=== PATIENT | male | born 2000 | race African-American/Black ===

== ENCOUNTER 2021-09-03 19:23 | Inpatient (IN) | payer OTHER ==
[~2021-09-03] VITALS: Ht 177.8 cm; Wt 100.0 kg
[2021-09-03 20:20] LABS: BASOPHILS % (AUTO) 0.1 % (0.0-2.0); EOSINOPHILS % (AUTO) 0 % (1.0-6.0); HEMATOCRIT 42.5 % (41-53); HEMOGLOBIN 14.8 g/dL (13.5-17.5); LYMPHOCYTES # (AUTO) 0.8 K/uL (1.0-4.8); LYMPHOCYTES % (AUTO) 5.2 % (22.0-44.0); MEAN CORPUSCULAR HEMOGLOBIN 26.7 pg (26.0-34.0); MEAN CORPUSCULAR HGB CONC 34.8 G/dL (31.0-37.0); MEAN CORPUSCULAR VOLUME 77 fL (80-100); MONOCYTES # (AUTO) 1.8 K/uL (0.1-1.0); NEUTROPHILS # (AUTO) 12.4 K/uL (1.8-7.7); NEUTROPHILS % (AUTO) 82.7 % (40.0-70.0); PLATELET COUNT (AUTO) 175 K/uL (150-450); RED BLOOD CELL COUNT(AUTO) 5.55 MIL/uL (4.50-5.90)
[2021-09-03 20:30] LABS: ANION GAP 9 mmol/L (8-16); CARBON DIOXIDE 29 mmol/L (22-29); CHLORIDE 94 mmol/L (98-107); CREATININE 0.92 mg/dL (0.60-1.30); GLUCOSE,RANDOM 115 mg/dL (70-110); POTASSIUM 3.4 mmol/L (3.5-5.1); SODIUM SERUM 132 mmol/L (136-145); UREA NITROGEN, BLOOD 13 mg/dL (7-18)
[2021-09-03 20:31] LABS: CALCIUM, TOTAL 9.4 mg/dL (8.8-10.5); GLOMERULAR FILTR. RATE CALC > 60 mL/min (>60)
[2021-09-03 20:36] LABS: ALANINE AMINOTRANSFERASE 34 U/L (12-78); ALBUMIN 3.7 g/dL (3.4-5.0); ALKALINE PHOSPHATASE 153 U/L (46-116); ASPARTATE AMINOTRANSFERASE 40 U/L (15-37); BILIRUBIN,TOTAL 1.7 mg/dL (0.1-1.0); LIPASE 31 U/L (73-393); TOTAL PROTEIN, SERUM 8.4 g/dL (6.4-8.2)
[2021-09-03 21:38] LABS: APPEARANCE,URINE CLEAR (CLEAR); GLUCOSE, URINE (UA) NEGATIVE (NEGATIVE); KETONES,URINE 40 mg/dL (NEGATIVE); LEUKOCYTE ESTERASE ,URINE NEGATIVE (NEGATIVE); NITRATE,URINE NEGATIVE (NEGATIVE); OCCULT BLOOD,URINE NEGATIVE (NEGATIVE); PH,URINE 5.5 (5.0-8.0); PROTEIN,URINE POS 1+ (NEGATIVE)
[2021-09-03 21:42] LABS: BILIRUBIN,URINE PRELIM. POSITIVE (NEGATIVE)
[2021-09-03 21:44] LABS: BACTERIA,URINE Rare /HPF (None Seen); RBC,URINE 0-2 /HPF (0-2); WBC,URINE 0-2 /HPF (0-5)
[2021-09-03] MEDS ORDERED: BARIUM SULFATE 0.1% SUSPENSION 450 ML BOTTLE PO ONE (22:45)
[2021-09-03] MEDS ORDERED: ONDANSETRON HCL 4 MG TABLET PO ONE (22:45)
[2021-09-03] MEDS ORDERED: PIPERACILLIN/TAZO 3.375 GM/D5W 50 ML IV ONE (23:45)
[2021-09-04] MEDS ORDERED: SODIUM CHLORIDE 0.9% 1,000 ML IV ONE ×2
[2021-09-04] MEDS ORDERED: HYDROmorphone 2 MG/ML VIAL IVP PRN ×2 (00:30→12:15)
[2021-09-04] MEDS ORDERED: ONDANSETRON HCL 4 MG/2 ML VIAL IVP ONE (00:30)
[2021-09-04] MEDS ORDERED: HYDROmorphone 2 MG/ML VIAL IVP ONE (00:30)
[2021-09-04 01:36] LABS: COVID AG,FIA SOURCE NASOPHARYNGEAL
[2021-09-04] MEDS ORDERED: ONDANSETRON HCL 4 MG/2 ML VIAL IVP PRN (07:30)
[2021-09-04] MEDS ORDERED: AMPICILLIN SODIUM/SULBACTAM NA 1.5 GM in SODIUM CHLORIDE 0.9% 50 ML IV SCH (07:30)
[2021-09-04] MEDS ORDERED: MORPHINE SULFATE 2 MG/ML SYRINGE IVP PRN (07:30)
[2021-09-04] MEDS: RINGERS SOLUTION,LACTATED 1,000 ML IV SCH ×2 (08:08→22:35)
[2021-09-04] MEDS ORDERED: BUPIVACAINE/EPI/PF 0.5% 30 ML VIAL ONE (10:55)
[2021-09-04] MEDS ORDERED: BUPIVACAINE 0.25%/EPI 1:200,000/PF 10 ML VIAL ONE (10:57)
[2021-09-04] MEDS ORDERED: SODIUM CL IRRIG SOLN BAG 0 ML IRRIG ONE (10:58)
[2021-09-04] MEDS ORDERED: MEPERIDINE-PF 25 MG/ML VIAL IVP PRN (12:15)
[2021-09-04] MEDS ORDERED: FentaNYL CITRATE PF 100 MCG/2 ML VIAL IVP PRN (12:15)
[2021-09-04] MEDS ORDERED: PIPERACILLIN/TAZO 3.375 GM/D5W 50 ML IV ONE (12:45)
[2021-09-04] MEDS ORDERED: OxyCODONE HCL 5 MG IR TABLET PO PRN (13:30)
[2021-09-04 14:30] VITALS: BP 118/58
[2021-09-04] MEDS ORDERED: INFLUENZA VIRUS VACCINE QVS 2021-22 (6MO+)/PF 60 MCG/0.5 ML SYRINGE IM. ONE (15:30)
[2021-09-04] MEDS: ACETAMINOPHEN 500 MG TABLET PO SCH ×2 (16:41→20:23)
[2021-09-04] MEDS: HEPARIN SODIUM,PORCINE 5,000 UNITS/ML VIAL SQ SCH ×2 (16:45→23:27)
[2021-09-04] MEDS: IBUPROFEN 600 MG TABLET PO SCH ×2 (18:19→23:27)
[2021-09-04 19:42] VITALS: BP 121/62
[2021-09-04] MEDS: OXYGEN THERAPY IH SCH (20:00)
[2021-09-05 04:23] VITALS: BP 118/65
[2021-09-05] MEDS: RINGERS SOLUTION,LACTATED 1,000 ML IV SCH ×2 (05:57→14:04)
[2021-09-05] MEDS: IBUPROFEN 600 MG TABLET PO SCH ×2 (05:57→12:22)
[2021-09-05] MEDS ORDERED: LIDOCAINE/PF 2% 5 ML VIAL IM ONE (06:18)
[2021-09-05] MEDS ORDERED: MIDAZOLAM HCL 2 MG/2 ML VIAL IVP ONE (06:18)
[2021-09-05] MEDS ORDERED: SUCCINYLCHOLINE CHLORIDE 20 MG/ML 10 ML VIAL IVP ONE (06:18)
[2021-09-05] MEDS ORDERED: PROPOFOL 1% 20 ML VIAL IVP ONE (06:18)
[2021-09-05] MEDS ORDERED: HYDROmorphone 2 MG/ML VIAL IVP ONE (06:18)
[2021-09-05] MEDS ORDERED: ONDANSETRON HCL 4 MG/2 ML VIAL IVP ONE (06:18)
[2021-09-05] MEDS ORDERED: FentaNYL CITRATE PF 100 MCG/2 ML VIAL IVP ONE (06:18)
[2021-09-05 06:19] LABS: BASOPHILS % (AUTO) 0.3 % (0.0-2.0); EOSINOPHILS % (AUTO) 3.2 % (1.0-6.0); HEMATOCRIT 37.4 % (41-53); LYMPHOCYTES # (AUTO) 1.1 K/uL (1.0-4.8); LYMPHOCYTES % (AUTO) 14.8 % (22.0-44.0); MEAN CORPUSCULAR HEMOGLOBIN 27.1 pg (26.0-34.0); MEAN CORPUSCULAR HGB CONC 34.6 G/dL (31.0-37.0); MEAN CORPUSCULAR VOLUME 78 fL (80-100); MONOCYTES # (AUTO) 1.1 K/uL (0.1-1.0); MONOCYTES % (AUTO) 15.4 % (2.0-9.0); NEUTROPHILS # (AUTO) 4.9 K/uL (1.8-7.7); NEUTROPHILS % (AUTO) 66.3 % (40.0-70.0); PLATELET COUNT (AUTO) 172 K/uL (150-450); RED BLOOD CELL COUNT(AUTO) 4.79 MIL/uL (4.50-5.90); RED CELL DISTRIBUTION WIDTH 13.3 % (11.5-14.5)
[2021-09-05 06:35] LABS: ANION GAP 0 mmol/L (8-16); CALCIUM, TOTAL 8.7 mg/dL (8.8-10.5); CARBON DIOXIDE 34 mmol/L (22-29); CHLORIDE 101 mmol/L (98-107); CREATININE 0.71 mg/dL (0.60-1.30); GLOMERULAR FILTR. RATE CALC > 60 mL/min (>60); GLUCOSE,RANDOM 96 mg/dL (70-110); POTASSIUM 3.6 mmol/L (3.5-5.1); SODIUM SERUM 135 mmol/L (136-145); UREA NITROGEN, BLOOD 9 mg/dL (7-18)
[2021-09-05] MEDS: HEPARIN SODIUM,PORCINE 5,000 UNITS/ML VIAL SQ SCH ×2 (07:44→16:00)
[2021-09-05] MEDS: OXYGEN THERAPY IH SCH (07:44)
[2021-09-05] MEDS: ACETAMINOPHEN 500 MG TABLET PO SCH ×2 (07:44→16:15)
[2021-09-05 08:11] VITALS: BP 129/78
[2021-09-05 09:00] VITALS: BP 119/72
[2021-09-05] MEDS ORDERED: IBUP-2070 PO (10:41)
[2021-09-05] MEDS ORDERED: ACET-3385 PO (10:42)
[2021-09-05] MEDS ORDERED: OXYC20TA41 PO (10:45)
[2021-09-05 15:38] VITALS: BP 116/58
== END 2021-09-05 17:55 | disposition home or self-care (01) | DRG 342 ==
LOC: EMS 19:26 → 6N 09-04 14:19
PROVIDERS: ADMIT Internal Medicine; ATTEND Internal Medicine
PROC: 0DTJ4ZZ Resection of Appendix, Percutaneous Endoscopic Approach (ICD-10-PCS; principal; 2021-09-04 12:24)
DX: K35.30 Acute appendicitis with localized peritonitis, without perforation or gangrene (principal); R65.10 Systemic inflammatory response syndrome (SIRS) of non-infectious origin without acute organ dysfunction; K59.00 Constipation, unspecified; F12.90 Cannabis use, unspecified, uncomplicated; E87.6 Hypokalemia; Z20.822 Contact with and (suspected) exposure to COVID-19
CPT/HCPCS: 74176; 80048; 80053; 81001; 83690; 83735; 85025; 87081; 88302; 99285; G0238; J0295; J0330; J1170; J1644; J2250; J2405; J2543; J2704; J3010; J3490; J7030; J7050; J7120; Q0162; Q9967